=== PATIENT | male | born 1960 | race Caucasian/White ===

== ENCOUNTER → 2016-02-24 | Outpatient (CLI) | payer OTHER ==
--- NOTE | 2016-02-25 08:17 | MR ---
MRI Left Shoulder Without Contrast History: Left shoulder pain. Impingement. ICD-10 code M25.512. Technique: MRI was performed of the left shoulder using a [facility] [place] [facility] system. Oblique coronal, oblique sagittal, and axial imaging was obtained with standard imaging sequences. Findings: Acromioclavicular joint region: Minimal degenerative change is seen in the acromioclavicular joint. There is an anterior curve to the acromion. Rotator cuff: There is mild abnormal signal intensity in the distal supraspinatus tendon. There is mild bursal surface and undersurface fraying and attenuation. Infraspinatus and teres minor are unremarkable. Subscapularis is unremarkable. Biceps tendon: Long head biceps tendon is seen within the bicipital groove. Intraarticular long head biceps tendon is unremarkable. Glenohumeral joint: Mild cartilage signal abnormality and minimal thinning are seen in the posterior inferior articular margin of the humeral head and glenoid. Posterior labrum is diminutive. No evidence for glenohumeral joint effusion. Impression: 1. Mild tendinopathy and partial tear distal supraspinatus tendon. Mild subacromial bursitis. 2. Mild early degenerative change glenohumeral joint. Diminutive posterior labrum. 3. Minimal degenerative change acromioclavicular joint. Anterior curve to the acromion. MTDD
== END ==
LOC: FIMAGING 07:04
PROVIDERS: ATTEND Physician Assistant
DX: M25.512 Pain in left shoulder (principal)